=== PATIENT | male | born 1980 | race Caucasian/White ===

== ENCOUNTER 2021-10-14 07:03 | Day surgery (SDC) | payer OTHER ==
[~2021-10-14] VITALS: Ht 182.9 cm; Wt 77.1 kg
[2021-10-14] MEDS ORDERED: MEDROLPACK PO (11:32)
== END 2021-10-14 14:20 | disposition home or self-care (01) ==
LOC: CIR.AMB 07:03
PROVIDERS: ATTEND Otolaryngology Otology & Neurotology
DX: J32.0 Chronic maxillary sinusitis (principal); H68.103 Unspecified obstruction of Eustachian tube, bilateral; Z20.822 Contact with and (suspected) exposure to COVID-19; Z86.16 Personal history of COVID-19

== ENCOUNTER 2023-04-13 05:15 | Day surgery (SDC) | payer OTHER ==
[2023-04-11 12:05] LABS: URINE APPEARANCE Clear; URINE BILIRRUBIN Negative (NEGATIVE); URINE BLOOD Negative; URINE COLOR Yellow; URINE GLUCOSE Negative (NEGATIVE); URINE LEUKOCYTE Negative; URINE NITRATE Negative; URINE PROTEIN Negative (NEGATIVE); URINE UROBILINOGEN 0.2 E.U./dl
[2023-04-11 12:13] LABS: URINE BACTERIA 2.5 uL (0.0-1933); URINE RBC 0.5 uL (0.0-20.8); URINE WBC 0.1 uL (0.0-23.2)
[2023-04-11 12:47] LABS: HEMOGLOBIN 14.9 g/dL (13-16.00); MEAN CELL VOLUME 90.5 fL (80.0-100.00); MEAN CORPUSCULAR HEMOGLOBIN 30.6 pg (27.00-32.0); MEAN CORPUSCULAR HGB CONC 33.8 g/dl (32.0-36.0); PLATELET COUNT 244 K/uL (150-450); RED BLOOD COUNT 4.86 M/uL (4.00-6.00); RED CELL DISTRIBUTION WIDTH 13.5 % (11.5-14.5)
[2023-04-11 13:14] LABS: INR 0.99; PARTIAL THROMBOPLASTIN TIME 30.5 SECONDS (22.0-34.0); PROTHROMBIN TIME 10.4 SECONDS (9.0-11.5)
[2023-04-11 13:34] LABS: ALBUMIN 4.3 gm/dL (3.4-5.0); BILIRUBIN TOTAL 1.42 mg/dL (0.3-1.2); CALCIUM 9.8 mg/dL (8.5-10.1); CREATININE SERUM 0.99 mg/dL (0.70-1.30); GFR 82.9; GLOBULINA 3.2 G/DL (2.4-3.5); PHOSPHOROUS 3.4 mg/dL (2.5-4.9); POTASSIUM 4.73 mEq/L (3.5-5.1); TOTAL PROTEIN 7.5 gm/dL (6.4-8.2)
[~2023-04-13 05:15] MED LIST: MEDROLPACK PO
[2023-04-13] MEDS ORDERED: CEPHALEXIN500 MG PO (09:05)
[2023-04-13] MEDS ORDERED: CIPROFLOXACIN2.5 ML OTIC (09:06)
== END 2023-04-13 10:20 | disposition home or self-care (01) ==
LOC: CIR.AMB 05:15
PROVIDERS: ATTEND Otolaryngology Otology & Neurotology
DX: H72.02 Central perforation of tympanic membrane, left ear (principal); H90.A12 Conductive hearing loss, unilateral, left ear with restricted hearing on the contralateral side; Z20.822 Contact with and (suspected) exposure to COVID-19